=== PATIENT | male | born 1965 | race Caucasian/White ===

== ENCOUNTER → 2017-10-22 | Day surgery (SDC) | payer OTHER ==
[2017-10-20 13:41] VITALS: BMI 35.4
[~2017-10-22] MED LIST: LACTATED RINGERS 1,000 ML IV SCH; LIDOCAINE 1% 20 ML VIAL (10MG/ML) FOR IV START INTRADERMA PRN; LIDOCAINE 1% INJ 10MG/ML (20 ML MDV) ONE; PROPOFOL 10 MG/ML 20 ML VIAL IV ONE
[2017-10-22 08:22] VITALS: TEMP 97
[2017-10-22 08:24] LABS: Glucose,Whole Blood 156 mg/dL (75-99)
[2017-10-22 10:19] VITALS: BP 128/80; PULSE 64; RESP 18
--- NOTE | 2017-10-22 10:38 | P.PCN ---
Date of Procedure: 10/22/17 Procedure(s) Performed: Procedure: Total colonoscopy. Preoperative diagnosis: Screening for neoplasia. Postoperative diagnosis: Sigmoid diverticulosis with no evidence of acute diverticulitis, strictures, polyps or cancer. Preparation: HalfLytely prep. Sedation: Was provided by anesthesia. Brief clinical history: The patient is a 52-year-old male who is referred for this evaluation for screening for neoplasia age being his risk factor. He has no abdominal complaints, bleeding or anemia. He did report issues with difficulties keeping his perianal area clean and feels that he has to constantly clean after he bowel movements. No bleeding or other rectal symptoms. There is family history of colon cancer in a maternal grandparent. This would be his first colonoscopy. Procedure: With the patient on his left lateral decubitus position and after informed consent and adequate sedation, the perianal area was inspected and it did not show any fissures or fistulas. There were no masses felt on digital rectal examination. The Olympus CFQ 160L video colonoscope was then inserted in the rectum in the usual fashion and advanced to the cecum. There were several diverticular orifices seen scattered in the sigmoid with no evidence of acute diverticulitis or strictures. There was rare diminutive Polyp that I noted white advancing the endoscope but was not noted upon withdrawing the endoscope and I suspect this could have been suction artifacts. There were some areas which were not completely clean and I spent some time cleansing those areas. Overall, the mucosa appeared healthy. I did not see large polyps or cancer. I retroflexed the endoscope in the rectum before the endoscope was withdrawn. The patient tolerated the procedure well. Plan: The patient was reassured. Discussed dietary measures. He will follow up with you as planned. Based on his history and this evaluation today, I am suggesting repeat exam in 5 years before going to a 10-year schedule.
== END ==
LOC: ORWHC2ENDO 07:46
DX: Z12.11 Encounter for screening for malignant neoplasm of colon (principal); K57.30 Diverticulosis of large intestine without perforation or abscess without bleeding; Z80.0 Family history of malignant neoplasm of digestive organs; E11.9 Type 2 diabetes mellitus without complications; K21.9 Gastro-esophageal reflux disease without esophagitis; E78.5 Hyperlipidemia, unspecified; I10 Essential (primary) hypertension; M19.90 Unspecified osteoarthritis, unspecified site; G47.33 Obstructive sleep apnea (adult) (pediatric); Z79.84 Long term (current) use of oral hypoglycemic drugs; Z79.51 Long term (current) use of inhaled steroids; Z79.899 Other long term (current) drug therapy
CPT/HCPCS: J2001; J2704; G0105

== ENCOUNTER 2024-07-06 09:19 | Day surgery (SDC) | payer MEDICARE, OTHER ==
[2024-07-05 09:30] VITALS: BMI 31.2
[~2024-07-06 09:19] MED LIST changes: -LIDOCAINE 1% 20 ML VIAL (10MG/ML) FOR IV START INTRADERMA PRN; -LIDOCAINE 1% INJ 10MG/ML (20 ML MDV) ONE; -PROPOFOL 10 MG/ML 20 ML VIAL IV ONE
[2024-07-06] MEDS: IV FLUID CONTINUATION 1,000 ML IV ONE (09:33)
[2024-07-06 09:45] VITALS: TEMP 98.1
[2024-07-06] MEDS ORDERED: LIDOCAINE 1% INJ 10MG/ML (20 ML MDV) ONE (10:35)
[2024-07-06] MEDS ORDERED: PROPOFOL 10 MG/ML 20 ML VIAL IV ONE (10:35)
--- NOTE | 2024-07-06 10:58 | P.PCN ---
Date of Procedure: 07/06/24 Procedure(s) Performed: BRIEF HISTORY: Patient is a 58-year-old pleasant white male scheduled for an elective colonoscopy as a part of for colon cancer. PROCEDURE PERFORMED: Colonoscopy with snare polypectomy PREOPERATIVE DIAGNOSIS: Screening for colon cancer. IV sedation per Anesthesia. PROCEDURE: After informed consent was obtained, the patient, was brought into the endoscopy unit. IV sedation was administered by Anesthesia under continuous monitoring. Digital rectal examination was normal. Initially the Olympus CF-160 flexible video colonoscope was then inserted in the rectum, gradually advanced into the cecum without any difficulty. Careful examination was performed as the scope was gradually being withdrawn. Ileocecal valve and the appendiceal orifice were visualized and appeared normal. Prep was fair. Mucosa of the cecum, appeared normal. The ascending colon there was a 5 mm sessile polyp removed by cold snare polypectomy. Rest of the ascending colon, transverse colon, descending colon, normal. Descending colon there was another 5 mm polyp removed by cold snare polypectomy. Sigmoid colon, and rectum appeared normal. Retroflexion was performed in the rectum and no lesions were seen. The patient tolerated the procedure well. IMPRESSION: 5 mm ascending colon polyp status post cold snare polypectomy 5 mm sigmoid colon polyp status post snare polypectomy RECOMMENDATIONS: Findings of this examination were discussed with the patient as well as his family.. He was advised to follow-up with the biopsy results. If the biopsy reveals adenoma he can have repeat colonoscopy in 5 years.
[2024-07-06 11:36] VITALS: BP 141/92; PULSE 71; RESP 20
[2024-07-08 07:17] LABS: Glucose,Whole Blood 90 mg/dL (70-110)
[2024-07-08 07:18] LABS: Glucose,Whole Blood 72 mg/dL (70-110)
== END 2024-07-06 11:37 | disposition home or self-care (01) ==
LOC: ORWHC2ENDO 09:19
PROVIDERS: ATTEND Internal Medicine Gastroenterology
DX: Z12.11 Encounter for screening for malignant neoplasm of colon
CPT/HCPCS: 45385; 88305